=== PATIENT | male | born 1975 | race Caucasian/White ===

== ENCOUNTER 2017-01-11 09:49 | Emergency (ER) | payer OTHER ==
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
--- NOTE | 2017-01-11 12:02 | DIAGNOSTIC IMAGING REPORT ---
PROCEDURE: XR HAND 3 OR 4 VIEWS - RIGHT INDICATION: TRAUMA/INJURY TECHNIQUE: Three views of the right hand. COMPARISON: None. FINDINGS: Normal mineralization. Sclerotic bone islands in the proximal and distal fifth metacarpal. No fractures. Normal osseous alignment. No suspicious soft-tissue calcification or radiodense foreign bodies. IMPRESSION: 1. Intact right hand.
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
--- NOTE | 2017-01-11 12:10 | ED ORDER SUMMARY ---
..... Patient: TRE ESPAÑA OrderSheet [facility] VisitID: [id number] [address] [place] [address] 41y, M Registration Date/Time: 01/11/2017 ORDER SHEET Weight: 81.6 kg (stated) Allergies: No Known Drug Allergy GENERAL ORDERS: Elbow 3 or 4V Right Urgent (10:36 01/11/2017 Janae King) (Ack 10:38 TBergley) (10:55 TBergley) Hand 3 or 4V Right Urgent (10:36 01/11/2017 Janae King) (Ack 10:38 TBergley) (10:55 TBergley) Ice (10:36 01/11/2017 Janae King) (Ack 10:39 TBergley) (10:39 TBergley) (10:39 Pamela Colvin) MEDICATION ORDERS: IV FLUIDS: ORDER SHEET NOTES: [Electronically signed by Sabine Cedeño R.N. (12:48 01/11/2017)] [Electronically signed by Jonathan Kraus Dr. (11:47 01/13/2017)] [Electronically locked/signed by Sabine Cedeño R.N. (12:48 01/11/2017)]
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
--- NOTE | 2017-01-11 12:10 | ED ORDER SUMMARY ---
..... Patient: TRE ESPAÑA OrderSheet [facility] VisitID: [id number] [address] [place] [address] 41y, M Registration Date/Time: 01/11/2017 ORDER SHEET Weight: 81.6 kg (stated) Allergies: No Known Drug Allergy GENERAL ORDERS: Elbow 3 or 4V Right Urgent (10:36 01/11/2017 Janae King) (Ack 10:38 TBergley) (10:55 TBergley) Hand 3 or 4V Right Urgent (10:36 01/11/2017 Janae King) (Ack 10:38 TBergley) (10:55 TBergley) Ice (10:36 01/11/2017 Janae King) (Ack 10:39 TBergley) (10:39 TBergley) (10:39 Pamela Colvin) MEDICATION ORDERS: IV FLUIDS: ORDER SHEET NOTES: [Electronically signed by Sabine Cedeño R.N. (12:48 01/11/2017)] [Electronically signed by Jonathan Kraus Dr. (11:47 01/13/2017)] [Electronically locked/signed by Sabine Cedeño R.N. (12:48 01/11/2017)]
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
--- NOTE | 2017-01-13 11:47 | ED MAR SUMMARY ---
..... Medication Administration Record [facility] [address] [place], [place] [id number] Patient: TRE ESPAÑA Visit ID: [id number] 41y, M Weight: 81.6 kg Height/Length: 71 in BMI: 25.1 ALLERGIES: No Known Drug Allergy
--- NOTE | 2017-01-13 11:47 | ED MED RECONCILIATION SUMMARY ---
Patient: TRE ESPAÑA Medication Reconciliation Report [facility] VisitID: [id number] [address] [place] [address] 41y, M Registration Date/Time: 01/11/2017 Weight: 81.6 kg Height/Length: 71 in. BMI: 25.1 ALLERGIES: No Known Drug Allergy The patient's Home Medications are listed below: CONTINUE TAKING THE FOLLOWING MEDICATIONS: BuPROPion HCl Oral 300mg daily Suboxone Sublingual (4-1 mg) daily Venlafaxine HCl Oral 150 mg, daily The source(s) of the original Home Medication information: Not obtained. The following Medications were given to the patient in the Emergency Department: None. The following Medications were prescribed to the patient: Acetaminophen (available over the counter): take according to label instructions. -- Jonathan Kraus Dr. Motrin (available over the counter): take according to label instructions. -- Jonathan Kraus Dr.
--- NOTE | 2017-01-13 11:47 | ED MED RECONCILIATION SUMMARY ---
Patient: TRE ESPAÑA Medication Reconciliation Report [facility] VisitID: [id number] [address] [place] [address] 41y, M Registration Date/Time: 01/11/2017 Weight: 81.6 kg Height/Length: 71 in. BMI: 25.1 ALLERGIES: No Known Drug Allergy The patient's Home Medications are listed below: CONTINUE TAKING THE FOLLOWING MEDICATIONS: BuPROPion HCl Oral 300mg daily Suboxone Sublingual (4-1 mg) daily Venlafaxine HCl Oral 150 mg, daily The source(s) of the original Home Medication information: Not obtained. The following Medications were given to the patient in the Emergency Department: None. The following Medications were prescribed to the patient: Acetaminophen (available over the counter): take according to label instructions. -- Jonathan Kraus Dr. Motrin (available over the counter): take according to label instructions. -- Jonathan Kraus Dr.
--- NOTE | 2017-01-13 11:47 | ED MAR SUMMARY ---
..... Medication Administration Record [facility] [address] [place], [place] [id number] Patient: TRE ESPAÑA Visit ID: [id number] 41y, M Weight: 81.6 kg Height/Length: 71 in BMI: 25.1 ALLERGIES: No Known Drug Allergy
--- NOTE | 2017-01-13 11:47 | ED DISCHARGE INSTRUCTIONS ---
Patient: TRE ESPAÑA General Instructions [facility] VisitID: [id number] [place] [address] 41y, M Registration Date/Time: 01/11/2017 01/11/2017 10:01 BP: 155/97. HR: 85. RR: 16. O2 saturation: 97%. Temp: 97.9 F. Hypertensive. Oxygen saturation normal. Essential hypertension. Sprain of the radial collateral ligament of the left elbow. Contusion to the right hand. INSTRUCTIONS Warnings: GENERAL WARNINGS: Return or contact your physician immediately if your condition worsens or changes unexpectedly, if not improving as expected, or if other problems arise. Specifically return if pain, vomiting, bleeding, breathing difficulty or fever. Your Current Medications: CONTINUE TAKING THE FOLLOWING MEDICATIONS: BuPROPion HCl Oral : 300mg daily. Suboxone Sublingual : Film 4-1 mg, daily. Venlafaxine HCl Oral : 150 mg daily. OTC Medications: Acetaminophen (available over the counter): take according to label instructions. Motrin (available over the counter): take according to label instructions. Follow-up: Return to the emergency department as needed. Follow up with your doctor in three days. Reason for referral: recheck today's concerns. Summary of care provided to patient via paper. Screening today revealed the patient's blood pressure to be in the normal range. The patient should follow up with a primary care provider for blood pressure management. Understanding of the discharge instructions verbalized by patient. ADDITIONAL INFORMATION Contusion: Hand You have a CONTUSION of your hand. This causes local pain, swelling and sometimes bruising. There are no broken bones. This injury takes from a few days to a few weeks to heal. Home Care: 1) Keep your arm elevated to reduce pain and swelling. This is very important during the first 48 hours. 2) Apply an ice pack (ice cubes in a plastic bag, wrapped in a towel) over the injured area for 20 minutes every 1-2 hours the first day. You should continue with ice packs 3-4 times a day for the next two days. Continue the use of ice packs for relief of pain and swelling as needed. 3) You may use acetaminophen (Tylenol) or ibuprofen (Motrin, Advil) to control pain, unless another pain medicine was prescribed. [ NOTE : If you have chronic liver or kidney disease or ever had a stomach ulcer or GI bleeding, talk with your doctor before using these medicines.] Follow Up with your doctor or this facility if you are not starting to improve within the next THREE days. [NOTE: If X-rays were taken, they will be reviewed by a radiologist. You will be notified of any new findings that may affect your care.] Get Prompt Medical Attention if any of the following occur: -- Pain or swelling increases -- Redness, warmth or drainage -- Hand or fingers becomes cold, blue, numb or tingly High Blood Pressure -- To Be Confirmed [No Tx] Your blood pressure was higher today than normal. Sometimes anxiety or pain can cause a temporary rise in blood pressure that later returns to normal. If your blood pressure is high on one measurement, this does not mean that you have hypertension (a chronic illness). However, you must have your blood pressure measured again within the next few days to find out if its still high. A normal blood pressure is 120/80 or less. The first (top) number is the "systolic" pressure. The second (bottom) number is the "diastolic" pressure. Hypertension exists when either the top number is 140 or higher, OR the bottom number is 90 or higher on repeated measurements. Blood pressure in the range of 120-140 (systolic) or 80-89 (diastolic) is considered "pre-hypertension". This means your are at risk for getting hypertension. You should have regular blood pressure checks to be sure your blood pressure is not rising. Home Care: Measure your blood pressure on 3 different days and write down the results. This can be done at your doctor's office or this facility. Some pharmacies and grocery stores offer automated blood pressure machines for your use. Follow Up: If your blood pressure is "high" (over 120/80) on 2 out of 3 days, you will need to follow up with your doctor for further evaluation and treatment. DO NOT PUT THIS OFF! Untreated high blood pressure increases the risk for heart attack, also known as acute myocardial infarction, or AMI, and stroke. It is a treatable condition. Get Prompt Medical Attention if any of the following occur: Chest pain or shortness of breath Severe headache Throbbing or rushing sound in the ears Nosebleed Sudden severe abdominal pain Extreme drowsiness, confusion or fainting Dizziness or vertigo (dizziness with spinning sensation) Weakness of an arm or leg or one side of the face Difficulty with speech or vision You have been given the following additional information: Contusion, Hand Hypertension, To Be Confirmed (Electronically signed by Jonathan Kraus Dr. 01/13/2017 11:47)
== END 2017-01-11 12:20 | disposition home or self-care (01) ==
LOC: ED SRH 09:49
DX: S53.431A Radial collateral ligament sprain of right elbow, initial encounter (principal); S60.221A Contusion of right hand, initial encounter; W22.8XXA Striking against or struck by other objects, initial encounter; Y93.9 Activity, unspecified; Y99.9 Unspecified external cause status; Y92.009 Unspecified place in unspecified non-institutional (private) residence as the place of occurrence of the external cause; I10 Essential (primary) hypertension